=== PATIENT | male | born 1950 ===

== ENCOUNTER 2025-01-11 08:52 | Outpatient (AMB) | payer MEDICARE, OTHER, SELFPAY | END 2025-01-11 09:16 | disposition home or self-care (01) | LOC: HO.HMGAL 08:52 | PROVIDERS: Visit Provider Registered Nurse Emergency | DX: J30.89 Other allergic rhinitis (principal) | CPT/HCPCS: 95117; 95165 ==

== ENCOUNTER 2025-02-02 08:56 | Outpatient (AMB) | payer MEDICARE, OTHER, SELFPAY | END 2025-02-02 09:03 | disposition home or self-care (01) | LOC: HO.HMGAL 08:56 | PROVIDERS: Visit Provider Registered Nurse Emergency | DX: J30.89 Other allergic rhinitis (principal) | CPT/HCPCS: 95117; 95165 ==

== ENCOUNTER 2025-03-23 08:28 | Outpatient (AMB) | payer MEDICARE, OTHER, SELFPAY | END 2025-03-23 08:29 | disposition home or self-care (01) | LOC: HO.HMGAL 08:28 | PROVIDERS: PCP Internal Medicine; Visit Provider Registered Nurse Emergency | DX: J30.89 Other allergic rhinitis (principal) | CPT/HCPCS: 95117; 95165 ==

== ENCOUNTER 2025-04-18 09:54 | Outpatient (AMB) | payer MEDICARE, OTHER, SELFPAY | END 2025-04-18 09:55 | disposition home or self-care (01) | LOC: HO.HMGAL 09:54 | PROVIDERS: PCP Internal Medicine; Visit Provider Registered Nurse Emergency | DX: J30.89 Other allergic rhinitis (principal) | CPT/HCPCS: 95117; 95165 ==